=== PATIENT | female | born 1945 | race Caucasian/White ===

== ENCOUNTER → 2018-03-23 11:31 | Outpatient (CLI) | payer MEDICARE, OTHER, SELFPAY ==
--- NOTE | 2018-03-23 | DI.MG.S_ITS ---
BILATERAL DIGITAL SCREENING MAMMOGRAM 3D/2D WITH CAD: 03/23/2018 CLINICAL: Routine screening. Comparison is made to exams dated: 03/06/2017 mammogram, 02/27/2016 mammogram, and 02/23/2015 mammogram - . The tissue of both breasts is extremely dense, which lowers the sensitivity of mammography. Current study was also evaluated with a Computer Aided Detection (CAD) system. There are mole markers on both breasts. No significant masses, calcifications, or other findings are seen in either breast. There has been no significant interval change. IMPRESSION: NEGATIVE There is no mammographic evidence of malignancy. A 1 year screening mammogram is recommended. This exam was interpreted at Station ID: [id number]. NOTE: For mammograms, a report in lay terms will be sent to the patient. Approximately 15% of breast malignancies will not be visualized mammographically. In the management of a palpable breast mass, a negative mammogram must not discourage biopsy of a clinically suspicious lesion. Electronically Signed By: Abhay kam/brenda:03/23/2018 19:10:10 copy to: Arlet Brewster letter sent: Normal Exam ACR BI-RADS Category 1: Negative 3341F
== END ==
PROVIDERS: PCP Nurse Practitioner Family; Visit Provider Family Medicine
DX: Z12.31 Encounter for screening mammogram for malignant neoplasm of breast (principal)
CPT/HCPCS: 77063; 77067

== ENCOUNTER 2018-03-30 10:46 | Day surgery (SDC) | payer MEDICARE, OTHER, SELFPAY ==
--- NOTE | 2018-03-30 | PATH_ITS ---
[facility] Accession Number: [id number] . 01 Material submitted: . PART A: GASTRIC POLYPS PART B: GE JUNCTION . 02 Diagnosis: A. Stomach, Polyps, Biopsies: Fundic gland polyps. No evidence of Helicobacter on H/E stain. Negative for intestinal metaplasia. Negative for dysplasia and malignancy. . B. Gastroesophageal Junction, Biopsy: Squamocolumnar junctional mucosa with specialized intestinal metaplasia, consistent with Mendes's esophagus. Negative for dysplasia and malignancy. MRV/03/31/2018 . 02 Electronically signed: . Donna Dimas MD, Pathologist NPI- [id number] . 01 Gross description: . Received two formalin-filled containers both labeled with the patient's name. . A. In a container labeled gastric polyps are four 0.2 to 0.3 cm portions of tissue. Entirely submitted in cassette A. B. In a container labeled GE junction are four less than 0.1 to 0.1 cm portions of tissue. Entirely submitted in cassette B. ([facility] [place]:[id number]) /[facility] . 02 Pathologist provided ICD-10: K22.70 . 02 CPT . 522321, 757280 Performed at: 01 [facility] [address], [place], [place] [id number] MD Xu Hobson MD Phone: [phone] Performed at: 02 [facility] [address] [place], [place] [id number] MD Donna Dimas MD Phone: [phone]
[2018-03-30 11:01] VITALS: BP 132/79; PULSE 80; RESP 15; TEMP 36; O2SAT 96; BMI 25.0
[2018-03-30] MEDS: SODIUM CHLORIDE 0.9% 1,000 ML 200 ML IV (11:15)
--- NOTE | 2018-03-30 13:05 | PM.HP.1 ---
History of Present Illness Date Patient Seen: 03/30/18 Time Patient Seen: 13:05 Chief complaint: [id number] Narrative: The patient is a woman with Mendes's esophagus here for surveillance exam. She has no symptoms. Patient History Medical History Cough (Acute) Elevated cholesterol (Acute) GERD (gastroesophageal reflux disease) (Acute) Headache (Acute) Impaired vision (Acute) Left wrist fracture (Acute ~2010) Mendes esophagus (Chronic) Family & Social History Family History: Reviewed 03/30/18 by Isidro Perez MD Social History: household members spouse Tobacco & Substance use: Smoking Status Never smoker alcohol intake current Meds Home Medications Medication Instructions Recorded Confirmed Type fish oil-dha-epa 1,200 mg PO DAILY 02/16/18 03/30/18 History lovastatin 20 mg PO DAILY 02/16/18 03/30/18 History multivitamin tablet 1 tab PO DAILY 02/16/18 03/30/18 History cholecalciferol (vitamin D3) 2,000 units PO SEEINSTR 03/30/18 03/30/18 History [Vitamin D3] omeprazole 20 mg PO DAILY 03/30/18 03/30/18 History Allergies Allergy/AdvReac Type Severity Reaction Status Date / Time No Known Drug Allergies Allergy Verified 03/30/18 11:04 Review of Systems Review of Systems All systems reviewed & are unremarkable except as noted in HPI and below Cardiovascular Comments: Has elevated cholesterol Musculoskeletal Comments: Arthritis Exam Vital Signs (past 8 hours): - 03/30/18 11:01 Temperature 96.8 F L Pulse Rate 80 Respiratory Rate 15 Blood Pressure 132/79 Pulse Oximetry 96 Oxygen Delivery Method Room Air Narrative Exam Narrative: Thin cooperative woman in no apparent distress. Lungs are clear. Heart regular rate and rhythm without murmur gallop. Abdomen is soft nontender without mass. Alert and oriented x3. Assessment & Plan Plan: Assessment/Plan Narrative: Will proceed to EGD and biopsy. I have discussed the procedure with the patient including risks of bleeding perforation. She appears to understand wishes to proceed.
[2018-03-30] MEDS: LIDOCAINE 4% SOLN 50 ML 20 ML TOP (13:11)
--- NOTE | 2018-03-30 13:11 | PM.PREOP ---
Pre-operative Note Interval Note Pre-op Check: Yes History & Physical exam performed today by Physician Changes: No ASA Class (for procedural sedation): II
[2018-03-30] MEDS: TETRACAINE/BENZOCAINE/BUTAMBEN (CETACAINE) BOTTLE 1 SPRAY TOP (13:12)
[2018-03-30] MEDS: MIDAZOLAM 5 MG/5 ML VIAL IV (13:19)
[2018-03-30] MEDS: fentaNYL 250 MCG/5 ML INJ IV (13:20)
--- NOTE | 2018-03-30 13:23 | PM.OP.ENDO ---
Operative Date/Time/Diagnoses Date of procedure: 03/30/18 Time of procedure: 13:23 Pre-op diagnosis: History of Mendes's esophagus Post-op diagnosis: same (Mendes's esophagus) Procedure & Clinicians Study performed: EGD with cold biopsy Same procedure as scheduled: Yes Indications: Surveillance of Mendes's esophagus. Last exam 3 years ago. Surgeon: Isidro Perez Procedure Notes SCOAP/Timeout: Performed Procedure in detail: The patient had topical anesthetic applied to oropharynx. She was placed in left lateral decubitus position and underwent IV sedation directed by the surgeon consisting of fentanyl and Versed. A bite block was inserted and the scope was advanced through it into the esophagus. The esophagus was unremarkable. GE junction was noted at 35 cm from the incisors. The appearance of the distal esophagus was consistent with Mendes's esophagus with 2 large tongues of red tissue extending well above the GE junction. There was a 4 cm hiatal hernia. The stomach insufflated well. There were no lesions seen in the body, antrum or at the incisura. The pyloric channel was patent. The duodenum was unremarkable to the 4th part. The scope was brought back into the stomach and retroflexed. The proximal stomach had scattered polyps consistent with fundic gland polyps. Also noted was a hiatal hernia. Random biopsies were taken of some of the polyps.. The scope was straightened and brought out through the esophagus again. Biopsies were taken in 4 quadrants of the distal esophagus. There were no tumors or nodule seen. No other lesions were seen. The scope was removed and the patient tolerated the procedure well. Scope withdrawal time: Not applicable Sedation minutes: 8 Findings: Mendes's esophagus, hiatal hernia and other findings (Gastric fundic polyps) Specimen(s): other (Fundic polyps. Distal esophagus.) Complications: none Recommendations: EGD in 3 years and Continue medication(s) Follow up: as needed Disposition: PACU
[2018-03-30 13:28] VITALS: BP 121/74; PULSE 54; RESP 18; TEMP 36.6; O2SAT 98
[2018-03-30 13:33] VITALS: BP 112/76; PULSE 69; RESP 12; TEMP 36.6; O2SAT 98
[2018-03-30 13:38] VITALS: BP 116/72; PULSE 95; RESP 19; TEMP 36.6; O2SAT 96
[2018-03-30 13:48] VITALS: BP 137/85; PULSE 60; RESP 20; TEMP 36.3; O2SAT 99
--- NOTE | 2018-03-30 13:56 | SUR.PHASEII ---
Spouse at bedside. Patient denies pain/nausea. Taking ice chips. Will observe to ensure that nausea is controlled prior to discharge.
[2018-03-30 14:09] VITALS: BP 124/71; PULSE 61; RESP 12; TEMP 36.4; O2SAT 98
--- NOTE | 2018-03-30 14:25 | SUR.PHASEII ---
Unable to correct IV fluid infusion. Patient was given 900 ml/100 ml remaining when IV was dc'd.
== END 2018-03-30 14:20 | disposition home or self-care (01) ==
PROVIDERS: PCP Nurse Practitioner Family; Visit Provider Specialist
PROC: 0DJ08ZZ Inspection of Upper Intestinal Tract, Via Natural or Artificial Opening Endoscopic (ICD-10-PCS; CPT 43235; principal; 2018-03-30 11:45)
DX: K22.70 Barrett's esophagus without dysplasia (principal); K44.9 Diaphragmatic hernia without obstruction or gangrene; K31.7 Polyp of stomach and duodenum; E78.00 Pure hypercholesterolemia, unspecified; K21.9 Gastro-esophageal reflux disease without esophagitis
CPT/HCPCS: 43239; 88305; 99152; J2250; J3010

== ENCOUNTER → 2019-03-28 15:27 | Outpatient (CLI) | payer MEDICARE, OTHER, SELFPAY ==
--- NOTE | 2019-03-28 | DI.MG.S_ITS ---
BILATERAL DIGITAL SCREENING MAMMOGRAM 3D/2D WITH CAD: 03/28/2019 CLINICAL: Routine screening. Comparison is made to exams dated: 03/23/2018 mammogram, 03/06/2017 mammogram, and 02/27/2016 mammogram - [facility]. The tissue of both breasts is heterogeneously dense. This may lower the sensitivity of mammography. Current study was also evaluated with a Computer Aided Detection (CAD) system. No significant masses, calcifications, or other findings are seen in either breast. There has been no significant interval change. IMPRESSION: NEGATIVE There is no mammographic evidence of malignancy. A 1 year screening mammogram is recommended. This exam was interpreted at Station ID: [id number]. NOTE: For mammograms, a report in lay terms will be sent to the patient. Approximately 15% of breast malignancies will not be visualized mammographically. In the management of a palpable breast mass, a negative mammogram must not discourage biopsy of a clinically suspicious lesion. Electronically Signed By: Kourtney de jesus/brenda:03/28/2019 17:57:22 letter sent: Normal Exam ACR BI-RADS Category 1: Negative 3341F
== END ==
PROVIDERS: PCP Nurse Practitioner Family; Visit Provider Nurse Practitioner Family
DX: Z12.31 Encounter for screening mammogram for malignant neoplasm of breast (principal)
CPT/HCPCS: 77063; 77067

== ENCOUNTER 2019-05-10 08:33 | Day surgery (SDC) | payer MEDICARE, OTHER, SELFPAY ==
[2019-05-10] VITALS (7 sets, daily range): BP systolic 116–149; BP diastolic 69–87; PULSE 68–85; RESP 11–20; TEMP 35.9–36.8; O2SAT 94–99; BMI 26.6
--- NOTE | 2019-05-10 | PATH_ITS ---
[facility] Accession Number: [id number] . 01 Material submitted: . PART A: colon - COLON POLYP AT 60 CM PART B: colon - COLON POLYP AT 45 CM . 02 Diagnosis: A. Colon, Polyp at 60 cm, Biopsy: Tubular adenoma. . B. Colon, Polyp at 45 cm, Biopsy: Tubular adenoma. V 05/11/2019 1421 Local . 02 Electronically signed: . Donna Dimas MD, Pathologist NPI- [id number] . 01 Gross description: . Part A: COLON POLYP AT 60 CM: Received in formalin is 1 fragment(s) of rasmussen, soft tissue measuring 0.3 x 0.3 x 0.3 cm submitted entirely in 1 cassette(s) Part B: COLON POLYP AT 45 CM: Received in formalin is 1 fragment(s) of rasmussen, soft tissue measuring 0.6 x 0.4 x 0.4 cm submitted entirely in 1 cassette(s) [place] [place] 05/10/2019 1904 Local . 02 Pathologist provided ICD-10: D12.6 . 02 CPT . 514053, 570079 Performed at: 01 [facility] [address] [facility] [place], [place], [place] [id number] MD Xu Hobson MD Phone: [phone] Performed at: 02 [facility] [address] [place], [place] [id number] MD Donna Dimas MD Phone: [phone]
[2019-05-10] MEDS: SODIUM CHLORIDE 0.9% 1,000 ML 200 ML IV (09:05)
--- NOTE | 2019-05-10 09:23 | SUR.PREOP ---
warm blankets provided and call light in reach. at bedside.
--- NOTE | 2019-05-10 09:56 | P.HP_ITS ---
History of Present Illness History of Present Illness Date Patient Seen: 05/10/19 Time Patient Seen: 09:56 Chief complaint: [id number] Narrative: The patient is a woman here for screening colonoscopy. No family history of colon cancer. No history of polyps. Last exam was 11 years ago. Patient History Medical History Mendes esophagus (Chronic) Cough (Acute) Elevated cholesterol (Acute) GERD (gastroesophageal reflux disease) (Acute) Headache (Acute) Impaired vision (Acute) Left wrist fracture (Acute ~2010) Family & Social History Family History Mother Hypertension Father Stroke Social History: household members spouse Tobacco & Substance use: Smoking Status Never smoker alcohol intake current Meds Home Medications and Allergies Home Medications Medication Instructions Recorded Confirmed Type fish oil-dha-epa 1,200 mg PO DAILY 02/16/18 05/10/19 History cholecalciferol (vitamin D3) 2,000 units PO SEEINSTR 03/30/18 05/10/19 History [Vitamin D3] omeprazole 20 mg PO DAILY 03/30/18 05/10/19 History lovastatin 20 mg PO DAILY 05/10/19 05/10/19 History Allergies Allergy/AdvReac Type Severity Reaction Status Date / Time No Known Drug Allergies Allergy Verified 05/10/19 09:02 Review of Systems Review of Systems ROS Unobtainable: All systems reviewed & are unremarkable except as noted in HPI and below Respiratory Comments: Occasional cough Exam Vital Signs (past 8 hours): - 05/10/19 09:10 Temperature 96.7 F L Pulse Rate 72 Respiratory Rate 16 Blood Pressure 126/84 Pulse Oximetry 96 Oxygen Delivery Method Room Air Narrative Exam Narrative: Pleasant cooperative patient no apparent distress. Lungs are clear to auscultation. No rales or rhonchi. Heart regular rate and rhythm no murmur gallop. Abdomen is soft nontender without mass. No obvious hernias. Patient is alert and oriented x3. Assessment & Plan Assessment & Plan narrative: The patient for a screening colonoscopy. I have discussed the procedure with them. Risks of bleeding, perforation which would necessitate major operation, failure to find remove all lesions, the potential tattoo were all discussed. All questions were answered. They wished to proceed .
[2019-05-10] MEDS: MIDAZOLAM 5 MG/5 ML VIAL IV (10:00)
[2019-05-10] MEDS: fentaNYL 250 MCG/5 ML INJ IV (10:01)
--- NOTE | 2019-05-10 10:02 | PM.PREOP ---
Pre-operative Note Interval Note History & Physical reviewed/Exam performed by Physician: Yes Changes to H&P: No ASA Class (for procedural sedation): I
--- NOTE | 2019-05-10 10:38 | PM.OP.ENDO ---
Operative Date/Time/Diagnoses Date of procedure: 05/10/19 Time of procedure: 10:38 Pre-op diagnosis: Screening exam. Last colonoscopy was 11 years ago Post-op diagnosis: same Procedure & Clinicians Study performed: Colonoscopy with hot snare polypectomy and cold biopsy. Same procedure as scheduled: Yes Indications: Screening Surgeon: Isidro Perez Procedure Notes SCOAP/Timeout: Performed Procedure in detail: The patient was placed in the left lateral decubitus position and underwent IV sedation directed by the surgeon consisting of fentanyl and Versed. Digital exam was normal except for some external tags. The scope was inserted and advanced through the rectum into the sigmoid, descending, transverse, and ascending colon. The patient was noted to have a tortuous sigmoid with multiple diverticuli.. The cecum was reached identified by the ileocecal valve and the appendiceal opening. The scope was gradually brought out. Polyps were found at 60 cm and 45 cm from the anal verge. The lesion at 60 cm was quite small and was removed with biopsy forceps. The lesion at 45 cm was larger and was snared and appeared to be completely removed.. The scope ultimately was retroflexed in the rectum. The appearance was normal. The scope was removed and the patient tolerated the procedure well. Prep was good. Scope withdrawal time: 9 minutes(13 total) Sedation minutes: 33 Findings: diverticulosis and polyp Specimen(s): other (Polyps) Complications: none Post-procedure Recommendations: Colonscopy in 5 years Follow up: as needed Disposition: PACU
[2019-05-10] MEDS: ONDANSETRON 4 MG/2 ML INJ IV (11:14)
--- NOTE | 2019-05-10 11:23 | SUR.PHASEII ---
Patient had bloody tissue after blowing her nose. After transfer to [facility] patient c/o nausea and vomited 25-50mls dark red fluid. Denied chest pain or generalized pain. Abd soft. VS stable. Dr. Perez notified. NEDRAO Olga.
== END 2019-05-10 11:52 | disposition home or self-care (01) ==
PROVIDERS: PCP Nurse Practitioner Family; Visit Provider Specialist
PROC: 0DJD8ZZ Inspection of Lower Intestinal Tract, Via Natural or Artificial Opening Endoscopic (ICD-10-PCS; CPT 45378; principal; 2019-05-10 09:45)
DX: Z12.11 Encounter for screening for malignant neoplasm of colon (principal); K57.30 Diverticulosis of large intestine without perforation or abscess without bleeding; D12.6 Benign neoplasm of colon, unspecified
CPT/HCPCS: 45385; 45380; 99152; 99153; J2250; J2405; J3010

== ENCOUNTER → 2020-02-02 16:29 | Outpatient (CLI) | payer MEDICARE, OTHER, SELFPAY | PROVIDERS: PCP Nurse Practitioner Family; Visit Provider Nurse Practitioner | DX: N39.0 Urinary tract infection, site not specified (principal) | CPT/HCPCS: 87086 ==

== ENCOUNTER → 2020-04-04 15:34 | Outpatient (CLI) | payer MEDICARE, OTHER, SELFPAY ==
--- NOTE | 2020-04-04 | DI.MG.S_ITS ---
BILATERAL DIGITAL SCREENING MAMMOGRAM 3D/2D WITH CAD: 04/04/2020 CLINICAL: Routine screening. Comparison is made to exams dated: 03/28/2019 mammogram, 03/23/2018 mammogram, and 03/06/2017 mammogram - [facility]. The tissue of both breasts is heterogeneously dense. This may lower the sensitivity of mammography. Current study was also evaluated with a Computer Aided Detection (CAD) system. No significant masses, calcifications, or other findings are seen in either breast. There has been no significant interval change. IMPRESSION: NEGATIVE There is no mammographic evidence of malignancy. A 1 year screening mammogram is recommended. This exam was interpreted at Station ID: [id number]. NOTE: For mammograms, a report in lay terms will be sent to the patient. Approximately 15% of breast malignancies will not be visualized mammographically. In the management of a palpable breast mass, a negative mammogram must not discourage biopsy of a clinically suspicious lesion. Electronically Signed By: Xu dean/brenda:04/04/2020 15:57:39 copy to: AISSATOU STEPHENS letter sent: Normal Exam ACR BI-RADS Category 1: Negative 3341F
== END ==
PROVIDERS: PCP Nurse Practitioner Family; Referring Provider Family Medicine; Visit Provider Family Medicine
DX: Z12.31 Encounter for screening mammogram for malignant neoplasm of breast (principal)
CPT/HCPCS: 77063; 77067

== ENCOUNTER 2020-07-01 17:59 | Emergency (ER) | payer MEDICARE, OTHER, SELFPAY ==
[2020-07-01 18:19] VITALS: BP 161/85; PULSE 82; RESP 16; TEMP 36.8; O2SAT 98; BMI 26.3
--- NOTE | 2020-07-01 18:23 | ED.FEMALEGU ---
HPI - Female Genitourinary General Chief complaint: Urogenital-Female Stated complaint: thinks UTI Time Seen by Provider: 07/01/20 18:15 Source: patient Mode of arrival: Ambulatory Limitations: no limitations History of Present Illness HPI Narrative: Patient is a 74-year-old female with history of UTI 2 months ago presenting today with 1 hour of frequent painful urination. She denies any fever chills nausea or vomiting or back pain. She says this feels exactly as it did previously. She was diagnosed with UTI in February and placed on Macrobid, although culture never grew anything. Complaint: UTI Onset (ago): hour(s) (1) Location: suprapubic Related Data Home Medications Medication Instructions Recorded Confirmed fish oil-dha-epa 1,200 mg PO DAILY 02/16/18 02/02/20 cholecalciferol (vitamin D3) 2,000 units PO SEEINSTR 03/30/18 02/02/20 [Vitamin D3] omeprazole 20 mg PO DAILY 03/30/18 02/02/20 lovastatin 20 mg PO DAILY 05/10/19 02/02/20 Previous Rx's Medication Instructions Recorded cephalexin [Keflex] 500 mg PO BID #10 cap 07/01/20 Allergies Allergy/AdvReac Type Severity Reaction Status Date / Time No Known Drug Allergies Allergy Verified 07/01/20 18:22 Review of Systems Review of Systems Narrative: GENERAL: Denies chills,fever HEENT: Denies throat pain RESPIRATORY: Denies dyspnea, cough, wheezing CARDIOVASCULAR: Denies chest pain, palpitations GASTROINTESTINAL: Denies nausea, vomiting : See HPI MUSCULOSKELETAL: Denies extremity pain, injury SKIN: No rash, no laceration, no pruritus NEUROLOGIC: Denies weakness, dizziness, headache, numbness 8 point review of systems is negative except for those stated above and HPI Patient History Medical History (Updated 07/01/20 @ 18:36 by Geri Palmer DO) Mendes esophagus Cough Elevated cholesterol GERD (gastroesophageal reflux disease) Headache Impaired vision Left wrist fracture (~2010) Family History Mother Hypertension Father Stroke alcohol intake frequency: 0-2 drinks per day Substance Use Type: does not use Exam Initial Vital Signs Initial Vital Signs: Vital Signs Temperature 98.3 F 07/01/20 18:19 Pulse Rate 82 07/01/20 18:19 Respiratory Rate 16 07/01/20 18:19 Blood Pressure 161/85 H 07/01/20 18:19 Pulse Oximetry 98 07/01/20 18:19 GENERAL: Alert well-appearing 74-year-old female and in no acute distress. HEENT: Head atraumatic,EOMI, pupils reactive, face symmetric, moist mucous membranes CARDIOVASCULAR: Regular rate and rhythm without murmurs, rubs or gallops. RESPIRATORY: Breath sounds equal bilaterally, no wheezes rales or rhonchi. ABDOMEN: Soft, nontender. Normoactive bowel sounds all 4 quadrants. No guarding or rebound. : No CVA tenderness EXTREMITIES: Normal range of motion, no clubbing or edema. Neurovascularly intact NEUROLOGICAL: Alert and oriented x4.Normal gait and speech. SKIN: Warm, dry, no laceration, no petechiae, no rashes or lesions. Course Orders Ordered: ED Orders 07/01/20 18:12 Urine Microscopic Stat Discontinued Medications Cefazolin Sodium (Cephalexin 250 Mg Prepack) 1 bottle [facility] [place] SEEINSTR ONE Stop: 07/01/20 18:38 Last Admin: 07/01/20 18:56 Dose: 500 mg Documented by: CHARI Vital Signs Vital signs: Vital Signs - 8 hr 07/01/20 18:19 Temperature 98.3 F Pulse Rate 82 Respiratory Rate 16 Blood Pressure 161/85 H Pulse Oximetry 98 MDM - Female Genitourinary Lab Data Attestation: I reviewed the patient's lab results. Labs: Lab Results 07/01/20 Range/Units 18:12 Urine RBC 30-100/hpf H (0-5/HPF) Urine WBC 1-5/hpf (0-5/HPF) Ur Squamous Epith Cells 0-1 /hpf (0-5/HPF) Amorphous Sediment 1+ Urine Bacteria None seen (None) Urine Mucus 1+ H (Negative) Ur Culture Indicated? Cult not indicated Urine Dip Bedside Urine Glucose Negative Bedside Urine Bilirubin - Negative Bedside Urine Ketone - Negative Urine Specific [place] 1.030 Bedside Urine Occult Blood +++ Bedside Urine pH 6 Bedside Urine Protein - Negative Bedside Urine Urobilinogen - Negative Bedside Urine Nitrite - Negative Bedside Urine Leukocytes - Negative Esterase MDM Narrative Medical decision making narrative: Patient has signs and symptoms of UTI blood in her urine no leukocytes or nitrates. She has no flank pain do not suspect kidney stone at this time fluid will treat her for UTI. Recommend outpatient follow-up. Discharge Plan Departure Patient Disposition: Home Clinical Impression: Urinary tract infection Qualifiers: Urinary tract infection type: acute cystitis Hematuria presence: with hematuria Qualified Code(s): N30.01 - Acute cystitis with hematuria Instructions: DI for Urinary Tract Infection (UTI) Activity Restrictions/Additional Instructions: *You have been diagnosed with UTI *What to do: At this time I recommend he follow up with her primary care provider. *Continue to take medications as directed Keflex 500 mg twice a day for 5 days--> SENT TO [facility] *Follow up with your primary care provider in 2-3 days *Return to ER if you should have increasing pain, fever, persistent vomiting or nausea or any new, worsening or concerning symptoms Prescriptions: New cephalexin [Keflex] 500 mg capsule 500 mg PO BID Qty: 10 RF: 0 No Action fish oil-dha-epa 1,200 mg PO DAILY RF: 0 omeprazole 20 mg Capsule,Delayed Release(Dr/Ec) 20 mg PO DAILY RF: 0 cholecalciferol (vitamin D3) [Vitamin D3] 2,000 unit Capsule 2,000 units PO SEEINSTR RF: 0 lovastatin 20 mg Tablet 20 mg PO DAILY RF: 0 Referrals: Arlet Brewster ARNP [Primary Care Provider] -
[2020-07-01 18:29] LABS: Bacteria Urine None Seen
[2020-07-01 18:37] LABS: RBC Urine 30-100/HPF (0-5/HPF)
[2020-07-01 18:38] LABS: Amorphous Sediment Urine 1+; Culture Indicated Urine Cult Not Indicated; Mucus Urine 1+ (Negative); Squamous Epithelial Cell Urine 0-1 /HPF (0-5/HPF); WBC Urine 1-5/HPF (0-5/HPF)
[2020-07-01] MEDS: cephALEXin 250 MG PREPACK 1 BOTTLE MISC (18:56)
== END 2020-07-01 19:00 | disposition home or self-care (01) ==
PROVIDERS: Emergency Provider Emergency Medicine; PCP Nurse Practitioner Family
DX: N30.01 Acute cystitis with hematuria (principal)
CPT/HCPCS: 81003; 81015; 99281; 99283

== ENCOUNTER → 2021-04-02 10:31 | Outpatient (CLI) | payer MEDICARE, OTHER, SELFPAY ==
[2021-04-02 11:26] LABS: COVID19 -Nasal RAPID Negative (Negative)
== END ==
PROVIDERS: PCP Student in an Organized Health Care Education/Training Program; Visit Provider Specialist
DX: Z01.812 Encounter for preprocedural laboratory examination (principal); Z20.822 Contact with and (suspected) exposure to COVID-19
CPT/HCPCS: 87635; C9803

== ENCOUNTER 2021-04-03 08:28 | Day surgery (SDC) | payer MEDICARE, OTHER, SELFPAY ==
[2021-04-03] VITALS (7 sets, daily range): BP systolic 112–142; BP diastolic 68–85; PULSE 58–80; RESP 9–18; TEMP 36.2–36.8; O2SAT 94–97; BMI 25.6
--- NOTE | 2021-04-03 | PATH_ITS ---
[facility] Accession Number: [id number] . 01 Material submitted: . PART A: gastrointestinal site - GASTRIC POLYPS PART B: esophagus, E-G Junction - GE JUNCTION . 02 Diagnosis: A. Stomach, Polyps, Biopsies: Fundic gland polyps. No evidence of Helicobacter on H/E stain. Negative for intestinal metaplasia. Negative for dysplasia and malignancy. . B. Gastroesophageal Junction, Biopsy: Squamocolumnar junctional mucosa with specialized intestinal metaplasia, consistent with Mendes's esophagus. Negative for dysplasia and malignancy. MRV 04/05/2021 1233 Local . 02 Electronically signed: . Donna Dimas MD, Pathologist NPI- [id number] . 01 Gross description: . Part A: GASTRIC POLYPS: Received in formalin are 4 fragment(s) of rasmussen, soft tissue measuring 0.4 x 0.3 x 0.3 cm to 0.3 x 0.2 x 0.2 cm submitted entirely in 1 cassette(s) Part B: GE JUNCTION: Received in formalin are 4 fragment(s) of rasmussen, soft tissue measuring 0.3 x 0.3 x 0.2 cm to 0.2 x 0.2 x 0.1 cm submitted entirely in 1 cassette(s) /[facility] 04/04/2021 0757 Local . 02 Pathologist provided ICD-10: K22.70 . 02 CPT . 016951, 957486 Performed at: 01 [facility] [address] [place] [address], [place], [place] [id number] MD Xu Hobson MD Phone: [phone] Performed at: 02 [facility] [place] [address] [place], [place] [id number] MD Donna Dimas MD Phone: [phone]
[2021-04-03] MEDS: LACTATED RINGERS 1,000 ML 200 ML IV (09:21)
--- NOTE | 2021-04-03 09:47 | PM.HP.1 ---
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 She is here for surveillance EGD. Patient History Medical History Mendes esophagus Cough Elevated cholesterol GERD (gastroesophageal reflux disease) Headache Impaired vision Left wrist fracture (~2010) Family & Social History Family History Mother Hypertension Father Stroke Social History: household members spouse Tobacco & Substance use: Smoking Status Never smoker alcohol intake current alcohol intake frequency other Substance Use Type does not use Meds Home Medications and Allergies Home Medications Medication Instructions Recorded Confirmed Type cholecalciferol (vitamin D3) 50 2,000 units PO SEEINSTR 03/30/18 04/03/21 History mcg (2,000 unit) capsule (Vitamin D3) omeprazole 20 mg capsule,delayed 20 mg PO DAILY 03/30/18 04/03/21 History release lovastatin 20 mg tablet 20 mg PO DAILY 05/10/19 04/03/21 History vitamin B complex (B 1,000 PO DAILY 04/03/21 History Complex-Vitamin B12) Allergies Allergy/AdvReac Type Severity Reaction Status Date / Time No Known Drug Allergies Allergy Verified 04/03/21 08:54 Review of Systems Review of Systems Narrative: No cardiopulmonary GI symptoms. No seizures or blackouts. Exam Vital Signs (past 8 hours): - 04/03/21 08:57 Temperature 98.2 F Pulse Rate 80 Respiratory Rate 18 Blood Pressure 140/85 Pulse Oximetry 97 Oxygen Delivery Method Room Air Narrative Exam Narrative: Pleasant cooperative patient no apparent distress. Lungs are clear to auscultation. No rales or rhonchi. Heart regular rate and rhythm no murmur gallop. Abdomen is soft nontender without mass. No obvious hernias. Patient is alert and oriented x3. Assessment & Plan Assessment and plan (1) Barretts esophagus: Status: Acute Assessment & Plan narrative: Patient with Mendes's esophagus here for an EGD and biopsies. I have discussed the procedure with her including risks of bleeding and perforation. She appears to understand wishes to proceed. Time Spent With Patient Critical Care time: I spent a total of [] minutes of critical care time on this patient's care today; this time is exclusive of procedural time.
--- NOTE | 2021-04-03 09:49 | PM.PREOP ---
Pre-operative Note COVID-19 COVID-19 status: Negative Result date/Date tested (Pos, Neg/Pending): 04/02/21 Interval Note History & Physical reviewed/Exam performed by Physician: Yes Changes to H&P: No ASA Class (for procedural sedation): I
--- NOTE | 2021-04-03 10:07 | P.OP.EGD_ITS ---
Operative Date/Time/Diagnoses Date of procedure: 04/03/21 Time of procedure: 10:07 Pre-op diagnosis: EGD with cold biopsy Post-op diagnosis: same (Gastric polyps suggestive of fundic polyps. 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 She was placed in the left lateral decubitus position and underwent IV sedation directed by the surgeon consisting of fentanyl and Versed. A bite block was inserted and the scope was advanced through it into the esophagus. The esophagus was unr emarkable. GE junction was noted at 38 cm from the incisors. There were tongues of red tissue extending above it. There was no narrowing at the GE junction. The stomach insufflated well. There were multiple polypoid lesions seen in the body. These had the appearance of gastric fundic polyps. The antrum was spared these lesions. It appeared to be normal. the incisura was normal in appearance. The pyloric channel was patent. The duodenum was unremarkable to just beyond the ligament of Treitz. Scope was brought back into the stomach and retroflexed. The proximal stomach remarkable for polyps as well as a small hiatal hernia. This was actually seen better from below than above. Multiple biopsies were taken of the polyps in the stomach. The scope was straightened and brought out through the esophagus again. Multiple biopsies were taken in the region of the GE junction. No other lesions were seen. The scope was removed and the patient tolerated the procedure well. Findings: Mendes's esophagus and other findings (Polyps with the appearance of benign gastric fundic polyps. Biopsies taken to confirm that suspicion.) Specimen(s): other (Gastric polyps. GE junction.) Complications: none Post-procedure Recommendations: Continue medication(s) (Omeprazole) and Other recommendation(s) (EGD in 3 years for surveillance purposes.) Follow up: as needed Disposition: PACU
[2021-04-03] MEDS: MIDAZOLAM 5 MG/5 ML VIAL IV (10:10)
[2021-04-03] MEDS: LIDOCAINE 4% SOLN 50 ML 20 ML TOP (10:10)
[2021-04-03] MEDS: fentaNYL 250 MCG/5 ML INJ IV (10:11)
[2021-04-03] MEDS: ONDANSETRON 4 MG/2 ML INJ IV (10:27)
== END 2021-04-03 11:00 | disposition home or self-care (01) ==
PROVIDERS: PCP Student in an Organized Health Care Education/Training Program; Referring Provider Specialist; Visit Provider Specialist
PROC: 0DJ08ZZ Inspection of Upper Intestinal Tract, Via Natural or Artificial Opening Endoscopic (ICD-10-PCS; CPT 43235; principal; 2021-04-03 09:30)
DX: K22.70 Barrett's esophagus without dysplasia (principal); Z87.19 Personal history of other diseases of the digestive system; K31.7 Polyp of stomach and duodenum; K44.9 Diaphragmatic hernia without obstruction or gangrene
CPT/HCPCS: 43239; J2250; J2405; J3010

== ENCOUNTER → 2021-04-24 11:22 | Outpatient (CLI) | payer MEDICARE, OTHER, SELFPAY ==
--- NOTE | 2021-04-24 11:25 | DI.MG.S_ITS ---
BILATERAL DIGITAL SCREENING MAMMOGRAM 3D/2D WITH CAD: 04/24/2021 CLINICAL: Routine screening. Comparison is made to exams dated: 04/04/2020 mammogram, 03/28/2019 mammogram, and 03/23/2018 mammogram - [facility]. The tissue of both breasts is heterogeneously dense. This may lower the sensitivity of mammography. Current study was also evaluated with a Computer Aided Detection (CAD) system. No significant masses, calcifications, or other findings are seen in either breast. There has been no significant interval change. IMPRESSION: NEGATIVE There is no mammographic evidence of malignancy. A 1 year screening mammogram is recommended. This exam was interpreted at Station ID: [id number]. NOTE: For mammograms, a report in lay terms will be sent to the patient. Approximately 15% of breast malignancies will not be visualized mammographically. In the management of a palpable breast mass, a negative mammogram must not discourage biopsy of a clinically suspicious lesion. Electronically Signed By: Flavio Ellis M.D., jr/brenda:04/24/2021 13:08:04 copy to: AISSATOU STEPHENS letter sent: Normal Exam ACR BI-RADS Category 1: Negative 3341F
== END ==
PROVIDERS: PCP Student in an Organized Health Care Education/Training Program; Referring Provider Student in an Organized Health Care Education/Training Program; Visit Provider Student in an Organized Health Care Education/Training Program
DX: Z12.31 Encounter for screening mammogram for malignant neoplasm of breast (principal)
CPT/HCPCS: 77063; 77067

== ENCOUNTER → 2021-08-05 12:45 | Outpatient (CLI) | payer MEDICARE, OTHER, SELFPAY | PROVIDERS: PCP Student in an Organized Health Care Education/Training Program; Referring Provider Student in an Organized Health Care Education/Training Program; Visit Provider Student in an Organized Health Care Education/Training Program | DX: M85.89 Other specified disorders of bone density and structure, multiple sites (principal); Z13.820 Encounter for screening for osteoporosis; Z78.0 Asymptomatic menopausal state | CPT/HCPCS: 77080 ==

== ENCOUNTER → 2022-05-07 15:05 | Outpatient (CLI) | payer MEDICARE, OTHER, SELFPAY ==
--- NOTE | 2022-05-07 15:06 | DI.MG.S_ITS ---
BILATERAL DIGITAL SCREENING MAMMOGRAM 3D/2D WITH CAD: 05/07/2022 CLINICAL: Routine screening. Comparison is made to exams dated: 04/24/2021 mammogram, 04/04/2020 mammogram, and 03/28/2019 mammogram - [facility]. Both breasts are heterogeneously dense, which may obscure small masses (category c / 51-75% glandular tissue). Current study was also evaluated with a Computer Aided Detection (CAD) system. No significant masses, calcifications, or other findings are seen in either breast. There has been no significant interval change. IMPRESSION: NEGATIVE There is no mammographic evidence of malignancy. A 1 year screening mammogram is recommended. Based on the Tyrer Cuzick model (a risk assessment model) the patient's lifetime risk is 4.3% and her 10 year risk is 4.3%. According to the ACR, ACS, and NCCN guidelines, an annual breast MRI exam along with mammogram is recommended if the patient's lifetime risk is 20% or greater. This exam was interpreted at Station ID: [id number]. NOTE: For mammograms, a report in lay terms will be sent to the patient. Approximately 15% of breast malignancies will not be visualized mammographically. In the management of a palpable breast mass, a negative mammogram must not discourage biopsy of a clinically suspicious lesion. Electronically Signed By: Flavio Ellis M.D., jr/brenda:05/08/2022 11:13:33 copy to: AISSATOU STEPHENS letter sent: Normal Exam ACR BI-RADS Category 1: Negative 3341F
== END ==
PROVIDERS: PCP Student in an Organized Health Care Education/Training Program; Referring Provider Student in an Organized Health Care Education/Training Program; Visit Provider Student in an Organized Health Care Education/Training Program
DX: Z12.31 Encounter for screening mammogram for malignant neoplasm of breast (principal)
CPT/HCPCS: 77063; 77067

== ENCOUNTER → 2023-05-19 15:52 | Outpatient (CLI) | payer MEDICARE, SELFPAY ==
--- NOTE | 2023-05-19 | DI.MG.S_ITS ---
BILATERAL DIGITAL SCREENING MAMMOGRAM 3D/2D WITH CAD: 05/19/2023 CLINICAL: Routine screening. Comparison is made to exams dated: 05/07/2022 mammogram, 04/24/2021 mammogram, and 04/04/2020 mammogram - [facility]. Both breasts are heterogeneously dense, which may obscure small masses (category c / 51-75% glandular tissue). Current study was also evaluated with a Computer Aided Detection (CAD) system. No significant masses, calcifications, or other findings are seen in either breast. There has been no significant interval change. IMPRESSION: NEGATIVE There is no mammographic evidence of malignancy. A 1 year screening mammogram is recommended. Based on the Tyrer Cuzick model (a risk assessment model) the patient's lifetime risk is 3.9% and her 10 year risk is 0.0%. According to the ACR, ACS, and NCCN guidelines, an annual breast MRI exam along with mammogram is recommended if the patient's lifetime risk is 20% or greater. This exam was interpreted at Station ID: [id number]. NOTE: For mammograms, a report in lay terms will be sent to the patient. Approximately 15% of breast malignancies will not be visualized mammographically. In the management of a palpable breast mass, a negative mammogram must not discourage biopsy of a clinically suspicious lesion. Electronically Signed By: Mark wong/brenda:05/20/2023 11:47:48 copy to: AISSATOU STEPHENS letter sent: Normal Exam ACR BI-RADS Category 1: Negative 3341F
== END ==
LOC: MAMMO 15:52
PROVIDERS: PCP Family Medicine; Referring Provider Family Medicine; Visit Provider Family Medicine
DX: Z12.31 Encounter for screening mammogram for malignant neoplasm of breast (principal); R92.333 Mammographic heterogeneous density, bilateral breasts
CPT/HCPCS: 77063; 77067

== ENCOUNTER 2023-07-05 22:00 | Emergency (ER) | payer MEDICARE, SELFPAY ==
[2023-07-05] VITALS (8 sets, daily range): BP systolic 152–183; BP diastolic 73–85; PULSE 66–69; RESP 16–20; TEMP 36.4; O2SAT 93–97; BMI 25.6
[2023-07-05 22:24] LABS: Add Manual Diff / Slide Review NO; Basophils Absolute Auto 100 /uL (0-100); Eosinophils Absolute Auto 200 /uL (0-450); Eosinophils Percent Auto 3.7 % (2-4); Hematocrit 39.7 % (36-46); Hemoglobin 13.2 g/dL (12.0-16.0); Lymphocytes Absolute Auto 2200 /uL (1100-4500); Lymphocytes Percent Auto 37.4 % (25-40); Mean Corpuscular HGB Conc 33.1 % (30-36); Mean Corpuscular Hemoglobin 28.9 PG (26-34); Mean Corpuscular Volume 87.4 fL (80-100); Monocytes Absolute Auto 600 /uL (0-900); Monocytes Percent Auto 10.5 % (3-14); Neutrophils Absolute Auto 2800 /uL (1500-7000); Neutrophils Percent Auto 47.4 % (50-75); Platelet Count 224 X10^3/uL (150-400); Red Blood Cell Count 4.55 X10^6/uL (4.0-5.2); Red Cell Distribution Width 14.4 % (11.6-14.8); White Blood Cell Count 5.9 X10^3/uL (4.5-11.0)
[2023-07-05 22:36] LABS: Alanine Aminotransferase 21 IU/L (<35); Albumin 4.1 g/dL (3.5-5.0); Albumin Globulin Ratio 1.3 (1.0-2.8); Alkaline Phosphatase 67 U/L (38-126); Aspartate Aminotransferase 25 IU/L (14-36); Bilirubin Total 0.4 mg/dL (0.2-1.3); Blood Urea Nitrogen 30 mg/dL (7-17); Calcium 9.6 mg/dL (8.4-10.2); Carbon Dioxide 26 mmol/L (22-32); Chloride 110 mmol/L (98-107); Estimated Glomerular Filt Rate > 60 mL/min (>60); Globulin 3.1 g/dL (1.7-4.1); Glucose 105 mg/dL (80-110); HEMOLYSIS < 15 (0-50); Lipase 109 U/L (23-300); Potassium 3.6 mmol/L (3.4-5.1); Sodium 140 mmol/L (137-145); Total Protein 7.2 g/dL (6.3-8.2)
--- NOTE | 2023-07-05 22:36 | ED_ITS ---
HPI - General Adult General Chief complaint: Abdominal Pain Stated complaint: Abd pain/pressure/low back pain Time Seen by Provider: 07/05/23 22:10 Source: patient Mode of arrival: Ambulatory History of Present Illness HPI narrative: 77-year-old female who is here for evaluation abdominal discomfort that she states started in her lower abdomen has a pressure. Then has radiated around to her lower back. Symptoms started several hours ago. At the time of my evaluation her symptoms have now completely resolved. She did have a bowel movement after the onset of symptoms when she did not think helped or made worse. Same with urinating. No fevers. No skin changes. Is currently asymptomatic Related Data Home Medications Medication Instructions Recorded Confirmed cholecalciferol (vitamin D3) 50 2,000 units PO SEEINSTR 03/30/18 04/03/21 mcg (2,000 unit) capsule (Vitamin D3) omeprazole 20 mg capsule,delayed 20 mg PO DAILY 03/30/18 04/03/21 release lovastatin 20 mg tablet 20 mg PO DAILY 05/10/19 04/03/21 vitamin B complex (B 1,000 PO DAILY 04/03/21 Complex-Vitamin B12 tablet) Allergies Allergy/AdvReac Type Severity Reaction Status Date / Time No Known Drug Allergies Allergy Verified 04/03/21 08:54 Review of Systems Constitutional Constitutional: Reports system reviewed and no additional complaints, except as documented Gastrointestinal Gastrointestinal: Reports system reviewed and no additional complaints, except as documented Genitourinary Genitourinary: Reports system reviewed and no additional complaints, except as documented Integumentary/Breasts Skin/Breast: Reports system reviewed and no additional complaints, except as documented Patient History Medical History Left wrist fracture (~2010) Impaired vision Headache GERD (gastroesophageal reflux disease) Cough Elevated cholesterol Mendes esophagus Family History Mother Hypertension Father Stroke Social History marital status: household members: spouse Smoking Status: Never smoker alcohol intake: current substance use type: does not use Smoking Status: Never smoker alcohol intake frequency: other Substance Use Type: does not use Exam Initial Vital Signs Initial Vital Signs: Vital Signs Pulse Rate 69 07/05/23 22:04 Pulse Oximetry 96 07/05/23 22:04 Const General: cooperative, comfortable and No ill appearing [facility] Head: normal to inspection and normocephalic Resp Effort & Inspection: normal respiratory effort Auscultation: clear to auscultation bilaterally Cardio Rate: regular rate GI Inspection: normal to inspection and non-distended Palpation: soft, No firm, No guarding and No tender Skin General: no rashes or lesions noted Neuro General: patient alert, patient awake and moves all extremities Extrem General: capillary refill normal Course Orders Ordered: ED Orders 07/05/23 22:10 EKG-12 Lead Stat 07/05/23 22:16 Complete Blood Count AUTO DIFF Stat Comprehensive Metabolic Panel Stat Lipase Stat Discontinued Medications Ondansetron HCl (Ondansetron 4 Mg/2 Ml Inj) 4 mg IV NOW PRN PRN Reason: Nausea And Vomiting Ondansetron HCl (Ondansetron 4 Mg Odt) 4 mg PO NOW PRN PRN Reason: Nausea And Vomiting Vital Signs Vital signs: Vital Signs - 8 hr 07/05/23 22:04 07/05/23 22:05 07/05/23 22:05 Temperature Pulse Rate 69 68 Respiratory Rate Blood Pressure 183/85 H Pulse Oximetry 96 97 Oxygen Delivery Method 07/05/23 22:07 07/05/23 22:16 07/05/23 22:16 Temperature 97.6 F Pulse Rate 69 67 Respiratory Rate 16 18 Blood Pressure 183/85 H 160/77 H Pulse Oximetry 97 95 Oxygen Delivery Method Room Air 07/05/23 22:30 07/05/23 23:00 07/05/23 23:22 Temperature Pulse Rate 67 66 69 Respiratory Rate 20 Blood Pressure Pulse Oximetry 94 93 94 Oxygen Delivery Method 07/05/23 23:41 Temperature Pulse Rate Respiratory Rate Blood Pressure 152/73 H Pulse Oximetry Oxygen Delivery Method Medical Decision Making Lab Data Lab results reviewed: Yes I reviewed the patient's lab results. 07/05/23 22:16 07/05/23 22:16 Labs: Lab Results 07/05/23 Range/Units 22:16 WBC 5.9 (4.5-11.0) X10^3/uL RBC 4.55 (4.0-5.2) X10^6/uL Hgb 13.2 (12.0-16.0) g/dL Hct 39.7 (36-46) % MCV 87.4 (80-100) fL MCH 28.9 (26-34) PG MCHC 33.1 (30-36) % RDW 14.4 (11.6-14.8) % Plt Count 224 (150-400) X10^3/uL Neut % (Auto) 47.4 L (50-75) % Lymph % (Auto) 37.4 (25-40) % Glynn % (Auto) 10.5 (3-14) % Eos % (Auto) 3.7 (2-4) % Baso % (Auto) 1.0 (0-2) % Neut # (Auto) 2800 (7526-3630) /uL Lymph # (Auto) 2200 (4659-2503) /uL Glynn # (Auto) 600 (0-900) /uL Eos # (Auto) 200 (0-450) /uL Baso # (Auto) 100 (0-100) /uL Sodium 140 (137-145) mmol/L Potassium 3.6 (3.4-5.1) mmol/L Chloride 110 H (98-107) mmol/L Carbon Dioxide 26 (22-32) mmol/L BUN 30 H (7-17) mg/dL Creatinine 0.77 (0.52-1.04) mg/dL Estimated GFR > 60 (>60) mL/min BUN/Creatinine Ratio 39.0 H (6-22) Glucose 105 (80-110) mg/dL Calcium 9.6 (8.4-10.2) mg/dL Total Bilirubin 0.4 (0.2-1.3) mg/dL AST 25 (14-36) IU/L ALT 21 (<35) IU/L Alkaline Phosphatase 67 (38-126) U/L Total Protein 7.2 (6.3-8.2) g/dL Albumin 4.1 (3.5-5.0) g/dL Globulin 3.1 (1.7-4.1) g/dL Albumin/Globulin Ratio 1.3 (1.0-2.8) Lipase 109 (23-300) U/L ECG Data Interpretation: Sinus rhythm Ventricular rate is 68 Normal axis Normal QRS Normal QTC No ST T wave changes MDM Narrative Medical decision making narrative: Patient is currently asymptomatic. Labs unremarkable. She has no urinary symptoms. She was unable to provide a urine sample. Afebrile. Normal vital signs. Has a benign exam. Given the fact that her symptoms have now completely resolved and the rest of her vital signs and labs are unremarkable will hold on any further workup for now. Will discharge patient home with strict return precautions. She expressed understanding and agreement with plan. Discharge Plan Departure Patient Disposition: Home Clinical Impression: Abdominal pain Instructions: DI for Abdominal Pain-Adult Activity Restrictions/Additional Instructions: Continue to take all of your medications as directed. Keep your scheduled appointment with your primary doctor the end of the week. Return to the emergency department for new or worsening symptoms. Prescriptions: No Action omeprazole 20 mg Capsule,Delayed Release(Dr/Ec) 20 mg PO DAILY cholecalciferol (vitamin D3) [Vitamin D3] 2,000 unit Capsule 2,000 units PO SEEINSTR Rx Instructions: Every other day vitamin B complex [B Complex-Vitamin B12] Tablet 1,000 PO DAILY Patient Comments: Vit b-12 1000 mcg daily po per patient lovastatin 20 mg Tablet 20 mg PO DAILY Referrals: Govind Arciniega MD [Primary Care Provider] - Stand Alone Forms: Patient Portal/API
== END 2023-07-05 23:47 | disposition home or self-care (01) ==
PROVIDERS: Emergency Provider Emergency Medicine; PCP Family Medicine
DX: R10.9 Unspecified abdominal pain (principal)
CPT/HCPCS: 36415; 80053; 83690; 85025; 93005; 93010; 99283; 99284

== ENCOUNTER → 2023-07-10 15:52 | Outpatient (CLI) | payer MEDICARE, SELFPAY | PROVIDERS: PCP Family Medicine; Visit Provider Nurse Practitioner Family | DX: R39.11 Hesitancy of micturition (principal) | CPT/HCPCS: 87086 ==

== ENCOUNTER → 2023-07-15 16:37 | Outpatient (CLI) | payer MEDICARE, SELFPAY | PROVIDERS: PCP Family Medicine; Visit Provider Nurse Practitioner Family | DX: R30.0 Dysuria (principal) | CPT/HCPCS: 87086 ==

== ENCOUNTER 2023-07-15 17:04 | Emergency (ER) | payer MEDICARE, SELFPAY ==
[2023-07-15] VITALS (8 sets, daily range): BP systolic 144–176; BP diastolic 70–84; PULSE 75–86; RESP 16–20; TEMP 36.7; O2SAT 94–96; BMI 25.6
--- NOTE | 2023-07-15 18:14 | ED.ABDPAIN ---
HPI - Abdominal Pain General Chief Complaint: Abdominal Pain Stated Complaint: lower abd pain,pressure Time Seen by Provider: 07/15/23 17:51 Source: patient Mode of arrival: Ambulatory History of Present Illness HPI narrative: 77-year-old female presents for lower abdominal pain and pressure as well as urinary frequency. Patient states that she went to the walk-in clinic 07/09 for suprapubic discomfort and frequency. She was concerned she had a urinary tract infection but urine dip showed blood and no bacteria or leukocyte esterase or nitrites. She was discharged and told to take azo for discomfort. Patient states that she tried the azo and it temporarily relieved her symptoms, but after 2 days she stopped taking it. Patient continued to have pressure and frequency and today she went back to the walk-in clinic. UA dip was unchanged, and patient was referred to the ED for further evaluation. Patient denies any other symptoms. Related Data Home Medications Medication Instructions Recorded Confirmed cholecalciferol (vitamin D3) 50 2,000 units PO SEEINSTR 03/30/18 07/15/23 mcg (2,000 unit) capsule (Vitamin D3) omeprazole 20 mg capsule,delayed 20 mg PO DAILY 03/30/18 07/15/23 release vitamin B complex (B 1,000 PO DAILY 04/03/21 07/15/23 Complex-Vitamin B12 tablet) lovastatin 40 mg tablet 40 mg PO DAILY 07/10/23 07/15/23 Previous Rx's Medication Instructions Recorded tamsulosin 0.4 mg capsule 0.4 mg PO BEDTIME #30 caps 07/15/23 Allergies Allergy/AdvReac Type Severity Reaction Status Date / Time No Known Drug Allergies Allergy Verified 07/15/23 16:41 Review of Systems Review of Systems Narrative: see HPI Patient History Medical History Left wrist fracture (~2010) Impaired vision Headache GERD (gastroesophageal reflux disease) Cough Elevated cholesterol Mendes esophagus Family History Mother Hypertension Father Stroke Social History marital status: household members: spouse Smoking Status: Never smoker alcohol intake: current substance use type: does not use Smoking Status: Never smoker alcohol intake frequency: other Substance Use Type: does not use Exam Initial Vital Signs Initial Vital Signs: Vital Signs Temperature 98.1 F 07/15/23 17:11 Pulse Rate 86 07/15/23 17:11 Respiratory Rate 20 07/15/23 17:11 Blood Pressure 176/84 H 07/15/23 17:11 Pulse Oximetry 96 07/15/23 17:11 Oxygen Delivery Method Room Air 07/15/23 17:11 Const: Awake, alert, no acute distress, nontoxic appearing Cardiac: regular rate, regular rhythm RESP: unlabored, clear bilaterally, no wheezing GI: Soft, suprapubic tenderness to deep palpation, no rebound, no guarding MSK: Atraumatic, full range of motion, pulses equal Skin: Warm, Dry, intact, no rashes Neuro: AO x3, CN II-XII grossly intact, moves all extremities Course Orders Ordered: ED Orders 07/15/23 17:25 CBC Auto Diff [Complete Blood Count AUTO DIFF] Stat CMP [Comprehensive Metabolic Panel] Stat 07/15/23 18:13 CT abdomen pelvis w con Stat Discontinued Medications Tamsulosin HCl (Tamsulosin 0.4 Mg Capsule) 0.4 mg PO NOW ONE Stop: 07/15/23 20:00 Last Admin: 07/15/23 20:05 Dose: 0.4 mg Documented By: SAMUEL Vital Signs Vital signs: Vital Signs - 8 hr 07/15/23 17:11 07/15/23 17:17 07/15/23 17:30 Temperature 98.1 F Pulse Rate 86 82 75 Respiratory Rate 20 Blood Pressure 176/84 H Pulse Oximetry 96 95 94 Oxygen Delivery Method Room Air 07/15/23 17:32 07/15/23 17:32 07/15/23 18:00 Temperature Pulse Rate 78 Respiratory Rate Blood Pressure 152/72 H 150/70 H Pulse Oximetry 95 Oxygen Delivery Method 07/15/23 18:00 07/15/23 19:06 07/15/23 19:06 Temperature Pulse Rate 77 76 Respiratory Rate 16 Blood Pressure 144/73 H Pulse Oximetry 94 95 Oxygen Delivery Method Room Air 07/15/23 20:07 07/15/23 20:08 07/15/23 20:08 Temperature Pulse Rate 75 Respiratory Rate 18 Blood Pressure 168/79 H Pulse Oximetry 96 95 Oxygen Delivery Method Room Air MDM - Abdominal Pain Differential Diagnosis Differential diagnosis: Likely abdominal pain, acute appendicitis and calculus of kidney Lab Data 07/15/23 17:25 07/15/23 17:25 Labs: Lab Results 07/15/23 Range/Units 17:25 WBC 5.6 (4.5-11.0) X10^3/uL RBC 4.48 (4.0-5.2) X10^6/uL Hgb 13.0 (12.0-16.0) g/dL Hct 39.0 (36-46) % MCV 87.2 (80-100) fL MCH 29.1 (26-34) PG MCHC 33.4 (30-36) % RDW 14.5 (11.6-14.8) % Plt Count 208 (150-400) X10^3/uL Neut % (Auto) 60.2 (50-75) % Lymph % (Auto) 27.6 (25-40) % [place] % (Auto) 8.6 (3-14) % Eos % (Auto) 2.8 (2-4) % Baso % (Auto) 0.8 (0-2) % Neut # (Auto) 3400 (4063-3482) /uL Lymph # (Auto) 1600 (3814-5508) /uL [place] # (Auto) 500 (0-900) /uL Eos # (Auto) 200 (0-450) /uL Baso # (Auto) 0 (0-100) /uL Sodium 139 (137-145) mmol/L Potassium 4.0 (3.4-5.1) mmol/L Chloride 109 H (98-107) mmol/L Carbon Dioxide 27 (22-32) mmol/L BUN 21 H (7-17) mg/dL Creatinine 0.65 (0.52-1.04) mg/dL Estimated GFR > 60 (>60) mL/min BUN/Creatinine Ratio 32.3 H (6-22) Glucose 107 (80-110) mg/dL Calcium 9.7 (8.4-10.2) mg/dL Total Bilirubin 0.5 (0.2-1.3) mg/dL AST 29 (14-36) IU/L ALT 17 (<35) IU/L Alkaline Phosphatase 68 (38-126) U/L Total Protein 7.1 (6.3-8.2) g/dL Albumin 4.1 (3.5-5.0) g/dL Globulin 3.0 (1.7-4.1) g/dL Albumin/Globulin Ratio 1.4 (1.0-2.8) Imaging Data CT scan - abdomen/pelvis: Radiologist's Impression: PROCEDURE: CT ABDOMEN PELVIS W CON INDICATIONS: SUPRAPUBIC PAIN/PRESSURE/NORMAL UA TECHNIQUE: After the administration of intravenous contrast, axial sections acquired from the lung bases to the pubic symphysis. Coronal and sagittal reformats were performed. For radiation dose reduction, the following was used: automated exposure control, adjustment of mA and/or kV according to patient size. COMPARISON: None. FINDINGS: Image quality: Diagnostic. Lower Chest: Basilar atelectasis. No pleural effusion. Moderate coronary artery calcifications. ABDOMEN: Liver: No solid mass. Gallbladder: No radiopaque gallstones or wall thickening. Biliary ducts: No biliary dilation. Pancreas: No ductal dilation. Spleen: Size is within normal limits. Adrenal Glands: No adrenal nodules. Kidneys and Ureters: Obstructing calculus at the distal left UVJ measuring 0.6 cm, (2/74). [id number] left hydronephrosis. No additional kidney stones identified. Stomach and Bowel: Normal colonic caliber, without significant wall thickening. The appendix is not dilated. Peritoneum: No abnormal intraperitoneal fluid. No free air. Ventral Wall: No significant ventral hernia. Abdominal Nodes: No retroperitoneal or mesenteric adenopathy by size criteria. Vessels: Aorta and inferior vena cava are normal in size. PELVIS: Pelvic Organs: Anteverted uterus. Bladder: Stone at the left UVJ. No additional stone. Pelvic Nodes: No enlarged lymph nodes. Miscellaneous: No inguinal hernias are seen. Bones: No aggressive osseous abnormality. Multilevel DDD. No compression fracture. IMPRESSION: 1. Obstructing calculus at the left UVJ measuring 0.6 cm. [id number]-hq-[id number] left hydronephrosis. 2. No additional kidney stones identified. Dictated by: Ramiro Padron M.D. on 07/15/2023 at 19:43 Approved by: Ramiro Padron M.D. on 07/15/2023 at 19:48 MDM Narrative Medical decision making narrative: Well-appearing patient with persistent suprapubic fullness and urinary frequency despite 2 negative urinalyses. Abdomen soft but she does have reproducible tenderness to deep palpation in the suprapubic region of the abdomen. Laboratory work and imaging will be obtained. Laboratory work is reviewed, no acute abnormalities identified. Patient kidney function stable, electrolytes within normal limits, no leukocytosis. CT of the abdomen and pelvis shows an obstructing calculus at the left UVJ measuring 6 mm. There is mild hydronephrosis. Since patient has normal kidney function, well controlled pain, able to tolerate p.o. plan to discharge with outpatient urology follow up. Patient was advised of all lab and imaging findings, and plan to start patient on Flomax. Since most pharmacies are about to close patient was given her 1st dose tonight. She was counseled to drink lots of fluids, take daily Flomax, and advised on the importance of following up with Urology. ED return precautions discussed at bedside. Patient expressed understanding of the plan and is in agreement at this time. All questions answered at the time of discharge. Discharge Plan Departure Patient Disposition: Home Clinical Impression: Kidney stone Instructions: DI for Kidney Stones Activity Restrictions/Additional Instructions: Your CT showed that you have a 6 mm kidney stone on the left-hand side, which is likely causing your symptoms. Your kidney function today was normal and there was no evidence of infection in your urine. Start taking daily Flomax to help pass the kidney stone. Drink lots of water to also help your stone pass. Follow up with Urology to ensure that the stone Shepherd passes and no further intervention is needed. Prescriptions: New tamsulosin 0.4 mg capsule 0.4 mg PO BEDTIME Qty: 30 0RF No Action lovastatin 40 mg tablet 40 mg PO DAILY omeprazole 20 mg Capsule,Delayed Release(Dr/Ec) 20 mg PO DAILY cholecalciferol (vitamin D3) [Vitamin D3] 2,000 unit Capsule 2,000 units PO SEEINSTR Rx Instructions: Every other day vitamin B complex [B Complex-Vitamin B12] Tablet 1,000 PO DAILY Patient Comments: Vit b-12 1000 mcg daily po per patient Referrals: David Jernigan MD [Physician] - Govind Arciniega MD [Primary Care Provider] - Stand Alone Forms: Patient Portal/API
[2023-07-15 18:26] LABS: Add Manual Diff / Slide Review NO; Basophils Absolute Auto 0 /uL (0-100); Basophils Percent Auto 0.8 % (0-2); Eosinophils Absolute Auto 200 /uL (0-450); Eosinophils Percent Auto 2.8 % (2-4); Lymphocytes Absolute Auto 1600 /uL (1100-4500); Lymphocytes Percent Auto 27.6 % (25-40); Mean Corpuscular HGB Conc 33.4 % (30-36); Mean Corpuscular Hemoglobin 29.1 PG (26-34); Mean Corpuscular Volume 87.2 fL (80-100); Monocytes Absolute Auto 500 /uL (0-900); Monocytes Percent Auto 8.6 % (3-14); Neutrophils Absolute Auto 3400 /uL (1500-7000); Neutrophils Percent Auto 60.2 % (50-75); Platelet Count 208 X10^3/uL (150-400); Red Blood Cell Count 4.48 X10^6/uL (4.0-5.2); Red Cell Distribution Width 14.5 % (11.6-14.8); White Blood Cell Count 5.6 X10^3/uL (4.5-11.0)
[2023-07-15 18:32] LABS: Alanine Aminotransferase 17 IU/L (<35); Albumin 4.1 g/dL (3.5-5.0); Albumin Globulin Ratio 1.4 (1.0-2.8); Alkaline Phosphatase 68 U/L (38-126); Aspartate Aminotransferase 29 IU/L (14-36); BUN Creatinine Ratio 32.3 (6-22); Bilirubin Total 0.5 mg/dL (0.2-1.3); Blood Urea Nitrogen 21 mg/dL (7-17); Calcium 9.7 mg/dL (8.4-10.2); Carbon Dioxide 27 mmol/L (22-32); Chloride 109 mmol/L (98-107); Estimated Glomerular Filt Rate > 60 mL/min (>60); Glucose 107 mg/dL (80-110); HEMOLYSIS < 15 (0-50); Sodium 139 mmol/L (137-145); Total Protein 7.1 g/dL (6.3-8.2)
[2023-07-15] MEDS: TAMSULOSIN 0.4 MG CAPSULE PO (20:05)
== END 2023-07-15 20:17 | disposition home or self-care (01) ==
PROVIDERS: Emergency Provider Emergency Medicine; PCP Family Medicine
DX: N20.0 Calculus of kidney (principal); R30.0 Dysuria
CPT/HCPCS: 36415; 51798; 74177; 80053; 85025; 87086; 93005; 93010; 99284; Q9967

== ENCOUNTER → 2023-08-13 11:20 | Outpatient (CLI) | payer MEDICARE, SELFPAY ==
[2023-08-13 12:27] LABS: Alanine Aminotransferase 16 IU/L (<35); Albumin 3.8 g/dL (3.5-5.0); Albumin Globulin Ratio 1.3 (1.0-2.8); Alkaline Phosphatase 59 U/L (38-126); Aspartate Aminotransferase 23 IU/L (14-36); BUN Creatinine Ratio 32.1 (6-22); Bilirubin Total 0.5 mg/dL (0.2-1.3); Blood Urea Nitrogen 25 mg/dL (7-17); Calcium 9.2 mg/dL (8.4-10.2); Carbon Dioxide 28 mmol/L (22-32); Chloride 110 mmol/L (98-107); Cholesterol 168 mg/dL (140-199); Estimated Glomerular Filt Rate > 60 mL/min (>60); Globulin 2.9 g/dL (1.7-4.1); Glucose 102 mg/dL (80-110); HDL Cholesterol 49 mg/dL (40-60); HEMOLYSIS < 15 (0-50); LDL Cholesterol Calculated 99 mg/dL (<100); Potassium 4.3 mmol/L (3.4-5.1); Sodium 139 mmol/L (137-145); Total Protein 6.7 g/dL (6.3-8.2); Triglycerides 101 mg/dL (35-150)
[2023-08-13 13:00] LABS: Add Manual Diff / Slide Review NO; Basophils Absolute Auto 0 /uL (0-100); Basophils Percent Auto 0.9 % (0-2); Eosinophils Absolute Auto 200 /uL (0-450); Eosinophils Percent Auto 3.7 % (2-4); Hematocrit 38.6 % (36-46); Hemoglobin 12.8 g/dL (12.0-16.0); Lymphocytes Absolute Auto 1300 /uL (1100-4500); Mean Corpuscular HGB Conc 33.2 % (30-36); Mean Corpuscular Hemoglobin 29.4 PG (26-34); Mean Corpuscular Volume 88.7 fL (80-100); Monocytes Absolute Auto 400 /uL (0-900); Monocytes Percent Auto 9.2 % (3-14); Neutrophils Absolute Auto 2600 /uL (1500-7000); Neutrophils Percent Auto 57.2 % (50-75); Platelet Count 204 X10^3/uL (150-400); Red Blood Cell Count 4.35 X10^6/uL (4.0-5.2); Red Cell Distribution Width 14.7 % (11.6-14.8); White Blood Cell Count 4.5 X10^3/uL (4.5-11.0)
[2023-08-13 14:37] LABS: TSH w/ Reflex to FT4 0.74 uIU/mL (0.47-4.68)
[2023-08-13 17:25] LABS: Hemoglobin A1C% w Est Avg Glu 5.3 % (4.0-6.0)
== END ==
PROVIDERS: PCP Family Medicine; Referring Provider Family Medicine; Visit Provider Family Medicine
DX: R73.03 Prediabetes (principal); E78.5 Hyperlipidemia, unspecified
CPT/HCPCS: 36415; 80053; 80061; 83036; 84443; 85025

== ENCOUNTER → 2023-09-15 11:24 | Outpatient (CLI) | payer MEDICARE, SELFPAY | PROVIDERS: PCP Family Medicine; Visit Provider Nurse Practitioner Family | DX: R31.9 Hematuria, unspecified (principal) | CPT/HCPCS: 87086 ==

== ENCOUNTER → 2023-10-13 14:16 | Outpatient (CLI) | payer MEDICARE, SELFPAY ==
--- NOTE | 2023-10-13 14:18 | DI.RAD.S_ITS ---
PROCEDURE: XR KUB INDICATIONS: Hematuria TECHNIQUE: One view of the abdomen acquired. COMPARISON: [facility], CT, CT ABDOMEN PELVIS W CON, 07/15/2023, 18:22. FINDINGS: Surgical changes and devices: None. Bowel: Bowel gas pattern is normal. Soft tissues: No suspicious abdominal calcifications. Visualized solid organ contours appear normal in size. Pelvic phleboliths. Bones: No suspicious bony lesions. Degenerative changes of the lumbar spine. IMPRESSION: No calcified urolithiasis identified. Dictated by: Bartolome Gonzalez M.D. on 10/13/2023 at 15:12 Approved by: Bartolome Gonzalez M.D. on 10/13/2023 at 15:13
== END ==
LOC: RAD 14:18
PROVIDERS: PCP Family Medicine; Referring Provider Specialist; Visit Provider Specialist
DX: R31.9 Hematuria, unspecified (principal)
CPT/HCPCS: 74018

== ENCOUNTER → 2024-01-07 11:53 | Outpatient (CLI) | payer MEDICARE, SELFPAY ==
[2024-01-07 13:03] LABS: Alanine Aminotransferase 15 IU/L (<35); Albumin 3.9 g/dL (3.5-5.0); Albumin Globulin Ratio 1.6 (1.0-2.8); Alkaline Phosphatase 63 U/L (38-126); Aspartate Aminotransferase 25 IU/L (14-36); BUN Creatinine Ratio 25.7 (6-22); Bilirubin Total 0.5 mg/dL (0.2-1.3); Blood Urea Nitrogen 19 mg/dL (7-17); Calcium 9.3 mg/dL (8.4-10.2); Carbon Dioxide 26 mmol/L (22-32); Chloride 107 mmol/L (98-107); Estimated Glomerular Filt Rate > 60 mL/min (>60); Globulin 2.4 g/dL (1.7-4.1); Glucose 99 mg/dL (80-110); HEMOLYSIS < 15 (0-50); Potassium 4.5 mmol/L (3.4-5.1); Sodium 138 mmol/L (137-145); Total Protein 6.3 g/dL (6.3-8.2)
[2024-01-07 13:06] LABS: Hemoglobin A1C% w Est Avg Glu 5.5 % (4.0-6.0)
== END ==
PROVIDERS: PCP Family Medicine; Referring Provider Family Medicine; Visit Provider Family Medicine
DX: R73.03 Prediabetes (principal); E78.5 Hyperlipidemia, unspecified
CPT/HCPCS: 36415; 80053; 83036

== ENCOUNTER 2024-06-06 11:44 | Day surgery (SDC) | payer MEDICARE, SELFPAY ==
--- NOTE | 2024-06-06 | PATH_ITS ---
[facility] Accession Number: [id number] No. of containers..08 Tissue . 01 Material submitted: . PART A: stomach - ANTRUM PART B: esophagus, E-G Junction - GE JUNCTION PART C: stomach - FUNDIC POLYP PART D: esophagus - LOWER ESOPHAGUS PART E: cecum - CECAL POLYP PART F: colon - ASCENDING POLYPS PART G: colon - DESCENDING POLYP PART H: sigmoid colon - SIGMOID POLYP . 01 Diagnosis: Part A: ANTRUM: Gastric mucosa with mild chronic inflammation. No Helicobacter organisms identified. No intestinal metaplasia, dysplasia, or malignancy identified. . 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 No dysplasia identified. . Part C: FUNDIC POLYP: Fundic gland polyp. No Helicobacter organisms identified on H/E stain. No intestinal metaplasia, dysplasia, or malignancy identified. . Part D: LOWER ESOPHAGUS: Squamous mucosa with no diagnostic alterations. Eosinophils are not increased. . Part E: CECAL POLYP: Tubular adenoma. . Part F: ASCENDING POLYPS: Tubular adenomas. . Part G: DESCENDING POLYP: Tubular adenoma. . Part H: SIGMOID POLYP: Tubular adenoma. [facility] 06/09/2024 1859 Local . 01 Electronically signed: . Xu Hobson MD, Pathologist NPI- [id number] . 01 Gross description: . A. Received in formalin with two patient identifiers and antrum, are two rasmussen soft tissue fragments 0.3 to 0.5 cm in greatest dimension. Submitted in cassette A1. . B. Received in formalin with two patient identifiers and GE junction, are three rasmussen soft tissue fragments 0.3 to 0.5 cm in greatest dimension. Submitted in cassette B1. . C. Received in formalin with two patient identifiers and fundic polyp, are four rasmussen soft tissue fragments 0.3 to 0.5 cm in greatest dimension. Submitted in cassette C1. . D. Received in formalin with two patient identifiers and lower esophagus biopsy, are two rasmussen soft tissue fragments 0.3 to 0.5 cm in greatest dimension. Submitted in cassette D1. . E. Received in formalin with two patient identifiers and cecal olyp, are multiple rasmussen soft tissue fragments mixed with other biological material aggregating to 1.5 x 0.6 x 0.2 cm. Filtered and submitted in cassette E1. . F. Received in formalin with two patient identifiers and ascending colon polyps, are multiple rasmussen soft tissue fragments aggregating to 1.5 x 0.6 x 0.3 cm. Filtered and submitted in cassette F1. . G. Received in formalin with two patient identifiers and descending colon polyp, are three rasmussen soft tissue fragments 0.3 to 0.5 cm in greatest dimension. Submitted in cassette G1. . H. Received in formalin with two patient identifiers and sigmoid colon polyp, is a rasmussen soft tissue fragment measuring 1.0 x 0.8 x 0.7 cm. Inked blue, trisected, and submitted entirely in cassette H1. ([id number]) /ADRIANO 06/09/2024 1859 Local . 01 Microscopic: . Part A: ANTRUM: A Diff Quick stain was performed to evaluate for Helicobacter organisms and is negative. The control stains appropriately. . 01 Pathologist provided ICD-10: D12.0, D12.2, D12.4, D12.5, K22.70, K29.50, K31.7 . 01 CPT . D89867, M73902, Z86446, X11249, H82027, X50930, W24763, U88519, Q64354 Specimen Comment: A courtesy copy of this report has been sent to [facility] Pathology Performed at: [address] [facility], [place], [place] [id number] MD Xu Hobson MD Phone: [phone]
[2024-06-06 12:06] VITALS: BP 124/84; PULSE 92; RESP 16; TEMP 36.9; O2SAT 99
[2024-06-06] MEDS: SODIUM CHLORIDE 0.9% 1,000 ML 84 ML IV (12:21)
--- NOTE | 2024-06-06 12:53 | P.HP_ITS ---
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 Colonoscopy with multiple polyps at that time as well. No current changes in health. Continues on omeprazole. [facility] Medical History (Updated 06/06/24 @ 12:54 by Suraj Coulter MD) Personal history of colonic polyps History of nephrolithiasis Hx of renal calculi Gross hematuria History of Mendes's esophagus Osteopenia Ovarian cyst (~1972) Colon polyps (~2019) Prediabetes Hyperlipidemia Left wrist fracture (~2010) Impaired vision Headache GERD (gastroesophageal reflux disease) Cough Elevated cholesterol Mendes esophagus Surgical History Hx of appendectomy Family History Mother Hypertension Cancer Thyroid disorder Father Stroke Grandfather History of heart disease Grandmother Pneumonia Social History marital status: household members: spouse Smoking Status: Never smoker alcohol intake: current substance use type: does not use caffeine: Yes Type(s) of exercise: walking frequency: 5-6 times per week duration: 45-60 minutes/day Meds Home Medications and Allergies Home Medications Medication Instructions Recorded Confirmed Type cholecalciferol (vitamin D3) 50 2,000 units PO SEEINSTR 03/30/18 12/21/23 History mcg (2,000 unit) capsule (Vitamin D3) vitamin B complex (B 1,000 PO DAILY 04/03/21 12/21/23 History Complex-Vitamin B12 tablet) lovastatin 40 mg tablet 40 mg PO DAILY 07/10/23 12/21/23 History omeprazole 20 mg capsule,delayed 20 mg PO DAILY #90 caps 10/27/23 12/21/23 Rx release sodium,potassium,mag sulfates 17.5 See Rx Instructions PO .COMPLEX 04/15/24 Rx gram-3.13 gram-1.6 gram oral soln #354 mL (Suprep Bowel Prep Kit) Allergies Allergy/AdvReac Type Severity Reaction Status Date / Time No Known Drug Allergies Allergy Verified 06/06/24 12:00 Review of Systems Review of Systems ROS: Yes All systems reviewed with the patient and are negative except as otherwise documented Exam Vital Signs (past 8 hours): - 06/06/24 12:06 Temperature 98.4 F Pulse Rate 92 H Respiratory Rate 16 Blood Pressure 124/84 Pulse Oximetry 99 Oxygen Delivery Method Room Air Oxygen Delivery Method Room Air Narrative Exam Narrative: Gen: NAD, sitting comfortably in bed, appears well HEENT: Sclera are anicteric, head is normocephalic and atraumatic, trachea is midline. 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 Qualifiers: Mendes's esophagus type: with dysplasia of unspecified degree Qualified Code(s): K22.719 - Mendes's esophagus with dysplasia, unspecified Status: Acute (2) Personal history of colonic polyps: Status: Acute Assessment & Plan narrative: Patient presents for EGD and colonoscopy Risks, benefits, alternatives to EGD and colonoscopy explained, including but not limited to bowel perforation or other serious complication requiring surgery at less than 1 in 5000 EGDs or colonoscopies, abdominal pain, cramping or bleeding and less than 1% of colonoscopies, and the chances that we find a diagnosis that would require further intervention of about 2%. Patient agrees to proceed. Time-Based Coding :: [TOTAL MINUTES] spent with patient and on the chart (including review of chart, obtaining history, exam, reviewing outside data, placing orders, documenting exam and treatment plan, and counseling patient) on [DATE]. PROFEE Director Of Public Works Document charge(s): No
--- NOTE | 2024-06-06 13:47 | PM.OP.EC ---
Operative Date/Time/Diagnoses Date of procedure: 06/06/24 Time of procedure: 13:47 Pre-op diagnosis: 1. Barretts esophagus 2. Personal history of polyps Post-op diagnosis: same (1. Tongues of Mendes's extending from 35-40 cm. 2. Multiple polyps over 1 cm in size) Procedure & Clinicians Study performed: 1. EGD with cold snare polypectomy and EGD with biopsies 2. Colonoscopy with cold snare polypectomies Same procedure as scheduled: Yes Indications: History of Mendes's without dysplasia, personal history of polyps Surgeon: Suraj Coulter Procedure Notes SCOAP/Timeout: Performed Procedure in detail: Time-out was performed. Mac was induced. Patient was left lateral decubitus position. Gastroscope was placed through a bite block. Gastroscope was advanced to the 2nd portion of the duodenal. Was some evidence of bile reflux gastritis. Biopsies were taken of the antrum. Multiple fundic gland polyps were noted. Three of the largest ones were removed with cold snare polypectomy. GE junction was examined. It was found to be within a hiatal hernia with tongues of Mendes's esophagus extending from 40 cm to 35 cm from the incisors. Multiple biopsies were taken of the GE junction. Multiple biopsies were taken of normal-appearing lower esophagus above the level of Barretts. The gastroscope was removed. Patient was placed in left lateral decubitus position. The perineum was inspected without any gross abnormality. Lubricated pediatric colonoscope was inserted and advanced to the cecum. The terminal ileum was intubated. The colonoscope was withdrawn slowly inspecting the circumference of the colon. Multiple large polyps, greater than 1 cm in size were noted. A 1.5 cm sessile polyp was noted in the cecum. This was removed in a piecemeal fashion with cold snare polypectomy, completely removed and retrieved. 1 cm polyp x2 were noted in the ascending colon. These were completely removed with cold snare polypectomy and retrieved. A descending colon polyp that was only 8 mm in size was removed with cold snare polypectomy and retrieved. A sigmoid polyp was noted, proximally 14 mm in size. This was removed completely with cold snare polypectomy and was too large to come through the channel so the scope was removed with the polyp on the end. The scope was reinserted to inspect the polypectomy site and was found to be hemostatic. Very small polyps may have been missed, prep quality was adequate. Retroflexed view of the rectum showed small, non prolapsed nonbleeding internal hemorrhoids. The scope was withdrawn the patient was taken to PACU in good condition. Scope withdrawal time: 20 Sedation minutes: 45 Findings: Mendes's esophagus, hiatal hernia, internal hemorrhoids and polyp Specimen(s): other (1. GE junction2. Antrum3. Fundic polyp4. Lower esophagus.5. Cecal polyp6. Ascending colon polyps7. Descending colon polyp8. Sigmoid polyp) Complications: none Impression: Barretts, multiple polyps Post-procedure Recommendations: Colonscopy in 1 year and EGD in 3 years Follow up: as needed Disposition: PACU
[2024-06-06 13:54] VITALS: BP 133/72; PULSE 80; RESP 15; TEMP 36.2; O2SAT 96
[2024-06-06 13:59] VITALS: BP 131/71; PULSE 74; RESP 16; O2SAT 99
[2024-06-06 14:05] VITALS: BP 133/83; PULSE 78; RESP 19; O2SAT 99
[2024-06-06 14:16] VITALS: BP 127/75; PULSE 79; RESP 15; O2SAT 97
== END 2024-06-06 14:44 | disposition home or self-care (01) ==
PROVIDERS: PCP Family Medicine; Referring Provider Surgery; Visit Provider Surgery
PROC: 0DJ08ZZ Inspection of Upper Intestinal Tract, Via Natural or Artificial Opening Endoscopic (ICD-10-PCS; CPT 43251; principal; 2024-06-06 12:45)
PROC: 0DJD8ZZ Inspection of Lower Intestinal Tract, Via Natural or Artificial Opening Endoscopic (ICD-10-PCS; CPT 45378; 2024-06-06 12:45)
DX: Z12.11 Encounter for screening for malignant neoplasm of colon (principal); K22.70 Barrett's esophagus without dysplasia; Z86.0100 Personal history of colon polyps, unspecified; K44.9 Diaphragmatic hernia without obstruction or gangrene; K64.0 First degree hemorrhoids; K63.5 Polyp of colon; K29.50 Unspecified chronic gastritis without bleeding; K31.7 Polyp of stomach and duodenum; D12.0 Benign neoplasm of cecum; D12.2 Benign neoplasm of ascending colon; D12.4 Benign neoplasm of descending colon; D12.5 Benign neoplasm of sigmoid colon
CPT/HCPCS: 43251; 45385; 43239; J2704

== ENCOUNTER → 2024-07-04 13:58 | Outpatient (CLI) | payer MEDICARE, SELFPAY ==
--- NOTE | 2024-07-04 13:59 | DI.MG.S_ITS ---
MM screening mammo BI: 07/04/2024. BI-RADS: 1 CLINICAL: 78-year old female for bilateral screening mammogram. Tyrer-Cuzick lifetime risk of 2.3%. No personal or first-degree family history of breast cancer. The patient had a prior right breast biopsy. PRIOR EXAMS: 05/19/2023, 05/07/2022, 04/24/2021, 04/04/2020. MAMMOGRAPHY TECHNIQUE: Bilateral CC and MLO tomosynthesis with synthesized views were obtained. Current study was also evaluated with a Computer Aided Detection (CAD) system. DENSITY C. The breasts are heterogeneously dense, which may obscure small masses. MAMMOGRAPHY FINDINGS Bilateral: No suspicious mass, asymmetry, microcalcification, or other abnormality seen. No suspicious change on comparison. IMPRESSION: * No evidence of malignancy. RECOMMENDATIONS Bilateral * Annual screening mammography. OVERALL ASSESSMENT CATEGORY BI-RADS-1: Negative. The [employer] recommends annual screening mammography beginning at age 40 for women with average risk of breast cancer. ELECTRONICALLY SIGNED: Truong Barrera M.D. on 07/04/2024 at 03:32:55 PM Interpreting Station ID: [id number]
== END ==
LOC: MAMMO 13:58
PROVIDERS: PCP Family Medicine; Referring Provider Family Medicine; Visit Provider Family Medicine
DX: Z12.31 Encounter for screening mammogram for malignant neoplasm of breast (principal); R92.333 Mammographic heterogeneous density, bilateral breasts
CPT/HCPCS: 77063; 77067

== ENCOUNTER → 2025-01-19 12:41 | Outpatient (CLI) | payer MEDICARE, SELFPAY ==
[2025-01-19 13:49] LABS: Influenza A - CEPHEID Flu A NEGATIVE (NEGATIVE); Influenza B - CEPHEID Flu B NEGATIVE (NEGATIVE)
[2025-01-19 13:50] LABS: COVID-19 CEPHEID 4-PLEX PCR POSITIVE (Negative)
== END ==
PROVIDERS: PCP Family Medicine; Visit Provider Nurse Practitioner Family
DX: Z20.822 Contact with and (suspected) exposure to COVID-19 (principal)
CPT/HCPCS: 87637

== ENCOUNTER 2025-01-25 09:32 | Emergency (ER) | payer MEDICARE, SELFPAY ==
[2025-01-25 09:40] VITALS: BP 141/73; PULSE 77; RESP 18; TEMP 36.8; O2SAT 97; BMI 27.7
--- NOTE | 2025-01-25 10:26 | DI.RAD.S_ITS ---
PROCEDURE: XR HAND RT MIN 3V INDICATIONS: fall/pain/bruising/swelling TECHNIQUE: 3 views of the hand(s) acquired. COMPARISON: None. FINDINGS: Bones: No fractures or dislocations. Carpal bones are normally aligned. No suspicious bony lesions. Underlying degenerative changes and osteopenia can be seen. Soft tissues: Soft tissue swelling is seen. IMPRESSION: Soft tissue swelling is seen, without an acute bony abnormality seen by plain film. If there is point tenderness (or other clinical suspicion for a fracture not seen on these images) then a dedicated CT or a short-term followup plain film series could be considered for further evaluation, as clinically appropriate. Dictated by: Isiah Betancur M.D. on 01/25/2025 at 10:14 Approved by: Isiah Betancur M.D. on 01/25/2025 at 10:15
--- NOTE | 2025-01-25 10:44 | ED.UPPEXIN ---
HPI - Extremity Injury (Upper) General Chief Complaint: Extremity Injury, Upper Stated Complaint: Fell Yesterday , swollen right ring finger Time Seen by Provider: 01/25/25 10:30 Source: patient Mode of arrival: Ambulatory History of Present Illness HPI narrative: Patient is right-handed. Patient was walking up steps at daughter's house and tripped and fell and injured her right ring and middle fingers. The ring finger had jewelry/a ring on and was easily removed with ring cutter without skin injury. Patient is up-to-date with tetanus. Patient in no distress. Injury occurred yesterday. Related Data Home Medications ?Medication ?Instructions ?Recorded ?Confirmed cholecalciferol (vitamin D3) 50 2,000 units PO SEEINSTR 03/30/18 01/19/25 mcg (2,000 unit) capsule (Vitamin D3) Previous Rx's ?Medication ?Instructions ?Recorded omeprazole 20 mg capsule,delayed 20 mg PO DAILY #90 caps 07/11/24 release lovastatin 40 mg tablet 40 mg PO DAILY #90 tabs 01/24/25 Allergies Allergy/AdvReac Type Severity Reaction Status Date / Time No Known Drug Allergies Allergy Verified 01/19/25 12:40 Review of Systems Review of Systems Narrative: GENERAL: Negative chills, fatigue, malaise, fever, sweats. HEENT: Negative sinus pain, ear pain, sore throat RESPIRATORY: Negative dyspnea, cough CARDIOVASCULAR: Negative chest pain, palpitations GASTROINTESTINAL: Negative vomiting, nausea, abdominal pain : Negative dysuria, frequency, hematuria MUSCULOSKELETAL: Positive muscle or bony pain SKIN: Negative rash, skin lesions NEUROLOGIC: Negative weakness, numbness ROS Unobtainable: All systems reviewed & are unremarkable except as noted in HPI and below Patient History Medical History Personal history of colonic polyps History of nephrolithiasis Hx of renal calculi Gross hematuria History of Mendes's esophagus Osteopenia Ovarian cyst (~1972) Colon polyps (~2019) Prediabetes Hyperlipidemia Left wrist fracture (~2010) Impaired vision Headache GERD (gastroesophageal reflux disease) Cough Elevated cholesterol Mendes esophagus Surgical History Hx of appendectomy Family History Mother Hypertension Cancer Thyroid disorder Father Stroke Grandfather History of heart disease Grandmother Pneumonia Social History marital status: household members: spouse Smoking Status: Never smoker alcohol intake: current substance use type: does not use caffeine: Yes Type(s) of exercise: walking frequency: 5-6 times per week duration: 45-60 minutes/day Smoking Status: Never smoker alcohol intake frequency: other Exam Narrative Exam Narrative: GENERAL: in no distress, not toxic not dyspneic HEAD: Normocephalic. EXTREMITIES: No gross deformities. There is circumferential edema of the ring and middle fingers. Again, the ring was easily removed from the ring finger. Light touch intact to fingertips. Brisk cap refills of both fingers. Patient is able to flex and extend, extend fully but limited flexion due to the swelling of the fingers. NEURO: AOx4. Clear speech SKIN: Warm and dry PSYCH: Not anxious, is cooperative Initial Vital Signs Initial Vital Signs: Vital Signs Temperature 98.3 F 01/25/25 09:40 Pulse Rate 77 01/25/25 09:40 Respiratory Rate 18 01/25/25 09:40 Blood Pressure 141/73 H 01/25/25 09:40 Pulse Oximetry 97 01/25/25 09:40 Oxygen Delivery Method Room Air 01/25/25 09:40 Course Orders Ordered: ED Orders 01/25/25 10:26 XR hand RT min 3V Stat Vital Signs Vital signs: Vital Signs - 8 hr 01/25/25 09:40 01/25/25 11:36 Temperature 98.3 F 98.8 F Pulse Rate 77 66 Respiratory Rate 18 16 Blood Pressure 141/73 H 134/88 Pulse Oximetry 97 95 Oxygen Delivery Method Room Air Room Air MDM - Extremity Injury (Upper) Imaging Data Extremity x-ray #1: Radiologist's Impression: [address] [address] XRay Report Signed Patient: Shanna Holley MR#: [id number] : 1945 Acct:[id number] Age/Sex: 79 / F Date of Service: 01/25/25 Loc: ED Accession Number: [id number] Procedure: XR hand RT min 3V Ordering Provider: David Rivera MD PROCEDURE: XR HAND RT MIN 3V INDICATIONS: fall/pain/bruising/swelling TECHNIQUE: 3 views of the hand(s) acquired. COMPARISON: None. FINDINGS: Bones: No fractures or dislocations. Carpal bones are normally aligned. No suspicious bony lesions. Underlying degenerative changes and osteopenia can be seen. Soft tissues: Soft tissue swelling is seen. IMPRESSION: Soft tissue swelling is seen, without an acute bony abnormality seen by plain film. If there is point tenderness (or other clinical suspicion for a fracture not seen on these images) then a dedicated CT or a short-term followup plain film series could be considered for further evaluation, as clinically appropriate. Dictated by: Isiah Betancur M.D. on 01/25/2025 at 10:14 Approved by: Isiah Betancur M.D. on 01/25/2025 at 10:15 [facility] Narrative Medical decision making narrative: Patient is right-handed. Patient was walking up steps at daughter's house and tripped and fell and injured her right ring and middle fingers. The ring finger had jewelry/a ring on and was easily removed with ring cutter without skin injury. Patient is up-to-date with tetanus. Patient in no distress. Injury occurred yesterday. MDM After history and exam, x-ray right hand. Ring cutter used to remove ring easily without injury to the finger Differential considered: Includes but not limited to finger strain sprain fracture Medical records reviewed: No recent visit for this complaint Imaging studies independently reviewed: X-ray right hand soft tissue finger swelling but no acute bony finding Consultations: None indicated at this time Re-evaluations: 11:30 a.m.. Updated patient results. X-rays reassuring. She does not want any splints or janessa taping of the fingers for finger sprain. Return precautions reviewed and she desires discharge home. Discussion: Appropriate for discharge home. Exam is reassuring. Return precautions reviewed with patient. Pain is controlled. She desires discharge home Diagnosis: Finger sprain Discharge Plan Departure Patient Disposition: Home Clinical Impression: Finger sprain Qualifiers: Encounter type: initial encounter Finger: unspecified finger Qualified Code(s): S63.619A - Unspecified sprain of unspecified finger, initial encounter Instructions: DI for Finger Sprain Activity Restrictions/Additional Instructions: May continue ibuprofen or Tylenol for pain. Please do keep your fingers elevated when at rest to reduce the swelling. Return for repeat x-rays of the fingers if not improving in 10 days. See family doctor in a week for re-evaluation. Return if worse if any questions or concerns. Your x-ray imaging is reassuring today. You are being treated for finger sprain Prescriptions: No Action omeprazole 20 mg capsule,delayed release(DR/EC) 20 mg PO DAILY Qty: 90 2RF lovastatin 40 mg tablet 40 mg PO DAILY Qty: 90 2RF cholecalciferol (vitamin D3) [Vitamin D3] 2,000 unit Capsule 2,000 units PO SEEINSTR Rx Instructions: Every other day Referrals: Willard Smith DO [Primary Care Provider, Family Practice] Stand Alone Forms: Patient Portal/API
[2025-01-25 11:36] VITALS: BP 134/88; PULSE 66; RESP 16; TEMP 37.1; O2SAT 95
== END 2025-01-25 11:38 | disposition home or self-care (01) ==
PROVIDERS: Emergency Provider Emergency Medicine; PCP Family Medicine
DX: S63.614A Unspecified sprain of right ring finger, initial encounter (principal); S63.612A Unspecified sprain of right middle finger, initial encounter; W01.0XXA Fall on same level from slipping, tripping and stumbling without subsequent striking against object, initial encounter
CPT/HCPCS: 73130; 99281; 99283